=== PATIENT | female | born 1970 | race Caucasian/White ===

== ENCOUNTER 2020-09-02 13:28 | Emergency (ER) | payer OTHER, SELFPAY ==
[2020-09-02 13:30] VITALS: BP 161/88; PULSE 121; RESP 17; TEMP 37.1; O2SAT 95; BMI 60.4
--- NOTE | 2020-09-02 14:04 | RAD_ITS ---
STUDY: X-RAY CHEST REASON FOR EXAM: Female, 50 years old. Worsening shortness of breath TECHNIQUE: Single AP portable view of the chest. COMPARISON: None. FINDINGS: Lungs are expanded with chronic interstitial changes in both lung correa, no demonstrated effusion or infiltrate findings suggest CHF or bronchitis. There is no demonstrated pleural abnormality. There is cardiomegaly. Normal mediastinum and buddy. Normal visualized pulmonary arteries. Normal visualized aortic arch and descending thoracic aorta. There are diffuse degenerative changes of the visualized thoracic spine. Normal visualized ribs, clavicles, and shoulders. There is no demonstrated abnormality of the visualized soft tissue structures of the upper abdomen. RAD/Chest 1 View (Portable) IMPRESSION: Diffuse interstitial edema without pleural effusions No organized infiltrate Cardiomegaly Electronically Signed: Harrison Hernandez MD at 14:55 EDT , Service support ,
--- NOTE | 2020-09-02 14:04 | EKG12_ITS ---
Test Reason : INFECTION Blood Pressure : / mmHG Vent. Rate : 114 BPM Atrial Rate : 114 BPM P-R Int : 168 ms QRS Dur : 072 ms QT Int : 326 ms P-R-T Axes : 051 121 021 degrees QTc Int : 449 ms Sinus tachycardia Right axis deviation Low voltage QRS Cannot rule out Anterior infarct , age undetermined Abnormal ECG Confirmed by SAMANTHA LYLE, DAWNA ([id number]), subeditor SAUL PORTILLO ([id number]) on 09/05/2020 2:56:18 PM Referred By: LUIS ALBERTO Confirmed By:JERE SINGH MD
--- NOTE | 2020-09-02 14:15 | ED.VIS.GEN ---
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 She was concerned that she was developing an infection in the left leg as it started to drain yesterday. She denies any significant color change. No tenderness with palpation. No pain in the legs. Her legs have been swollen for the past 6 months. Her PCP has evaluated her and placed her on Lasix. She does not feel like this is helping very much. She denies any significant chest pain, shortness of breath. She does get intermittent palpitations. She had a bad episode last night but currently denies experiencing this now. She had a mild cough last week but denies any infectious symptoms now. No fevers or chills. No abdominal pain or nausea/vomiting. No change in bowel movements. Denies having any fevers or chills. Past Medical History - Allergies and Home Meds Allergies/Adverse Reactions: Allergies Penicillins [PCN] Allergy (Verified 09/02/20 13:30) Other Sulfa (Sulfonamide Antibiotics) Allergy (Verified 09/02/20 13:30) Itching Primary Care Physician: [facility],Out of [NON-STAFF] - 1 Day Prior records reviewed: Yes Surgical History: noncontributory Smoking Status: Current every day smoker Review of Systems All systems negative except as indicated General: Denies: Chills, Fever, Sweats Eyes: Denies: Visual changes - bilaterally, Diplopia ENT: Denies: Rhinorrhea, Sore throat Cardiovascular: Reports: Palpitations. Denies: Chest pain Respiratory: Denies: Dyspnea, Cough, Dyspnea on exertion Gastrointestinal: Denies: Abdominal pain, Nausea, Vomiting, Diarrhea Genitourinary: Denies: Dysuria, Hematuria, Frequency Musculoskeletal: Reports: Swelling. Denies: Back pain, Extremity Pain Skin: Denies: Rash, Wounds Neurological: Denies: Headache, Weakness, Numbness Physical Exam Vital Signs/Narrative: Vital Signs Temp Pulse Resp BP Pulse Ox 09/02/20 13:30 98.7 F 121 H 17 161/88 H 95 Inital Vital Signs reviewed: Yes General: Obese, No Acute Distress Head: Normocephalic, Atraumatic Eyes: Perrl, EOMI ENT: Moist mucous membranes, No rhinorrhea Neck: Supple, Nontender Cardiovascular: Regular rhythm, No murmurs, Tachycardia Respiratory: No distress, CTA bilaterally, Chest nontender Abdomen: Soft, Nontender, Nondistended Back: Nontender, Normal Inspection Extremities: Nontender, - - Lymphedema of bilateral lower extremities. There is scaliness circumferential from mid tibia down to the foot. There is a open spot where the tissue appears more pink. No discharge. No tenderness. No warmth. Skin: Normal color Neurological: Alert, Oriented x3, Cranial nerves II-XII grossly intact, Normal Strength, Normal Sensation Psychological: Normal affect, Normal Mood Diagnostic/Tx/Re-eval Chest X-Ray - ED: 1 View - Single view portable x-ray interpreted by myself. Clear lung correa without any evidence of acute consolidation. Normal cardiac silhouette. Normal mediastinum. No large effusions present. Agree with radiologist. - EKG Initial EKG Interpretation: - - Rate of 114 bpm in sinus tachycardia. Normal intervals. Normal axis. No significant ST elevations or depressions. No T wave abnormalities. - Medical Decision Making Patient presents to the ED for swelling in her legs. She is concerned about an infection in the left caballero region. On exam this does appear pink but not erythematous, cellulitic. No significant tenderness. No warmth with palpation. On arrival her heart rate is in the 120s. She has been having some intermittent palpitations. Will check basic lab work given the significant swelling of her lower extremities, intermittent palpitations. This time I do not feel she needs any treatment for cellulitis. Patient's lab work showed a elevated white blood cell count and hemoglobin which she states is chronic for her. No evidence of infection. Her BMP and troponin are within normal limits. At this time I recommend she follow-up with her PCP. She can continue on the Lasix. I do recommend elevating her legs above the level of her heart is much as possible throughout the day and to continue to wear compression stockings. At this time she is stable for discharge. I did discuss with her about restarting anticoagulation with the history of the factor V which she needs to discuss with her PCP. This time I do not feel she has any evidence of DVT/PE. Her leg swelling is bilateral without any pain. She does not complain of any chest pain or shortness of breath. She was mildly tachycardic on arrival but upon discharge after she is resting laying her heart rate returned to the 90s. At this time she is discharged home in stable condition. Return precautions are reviewed with her including any evidence of cellulitis including erythema, warmth, significant tenderness to the area. She understands and is agreeable with plan. All questions answered. ED Disposition - Plan for ED Patient: Disposition: Home or Assisted Living Diagnosis: Peripheral edema Instructions: ED Lymphedema Referrals: [facility],Out of [NON-STAFF] - 1 Day
[2020-09-02 14:46] LABS: Absolute Lymphocyte Count 2.03 X10^3/uL (0.83-4.51); Absolute Neutrophil Count 10.5 X10^3/uL (2.0-7.7); Basophil# 0.05 X10^3/uL; Basophil% 0.4 % (0-1); Eosinophil# 0.13 X10^3/uL; Eosinophils% 0.9 % (0-5); Hematocrit 51.1 % (37-47); Hemoglobin 15.9 g/dL (12.0-15.0); Lymphocyte # 2.03 X10^3/ul (4.0); Lymphocyte % 14.4 % (19-41); Mean Corp Hgb Conc 31.1 g/dL (32-36); Mean Corpuscular Hgb 29.4 pg (27.0-32.0); Mean Corpuscular Volume 94.5 fL (81-99); Mean Platelet Vol. 11.8 fl (6.2-12.0); Monocyte# 1.33 X10^3/uL; Monocyte% 9.4 % (0-10); NRBC Flagged by Analyzer 0 % (0-5); Neutrophil # 10.48 X10^3/uL (2.7-7.7); Neutrophil % 74.5 % (47-70); Platelet Count 230 K/mm3 (150-450); RBC Distribution Width CV 16.2 % (11.6-14.6); RBC Distribution Width SD 56.1 fl (35.1-43.9); Red Blood Count 5.41 M/mm3 (4.2-5.4); White Blood Count 14.1 K/mm3 (4.4-11.0)
[2020-09-02 15:04] LABS: Anion Gap 2 (5-15); BUN 10 mg/dL (7-18); BUN/Creat Ratio 10.9 RATIO (10-20); Calcium,Total 9.3 mg/dL (8.5-10.1); Chloride 102 mmol/L (98-107); Creatinine, Serum 0.92 mg/dL (0.55-1.02); EST Glomerular Filtration Rate 69 mL/min (>60); Est Glom Filt Rate - Afr Amer 84 mL/min (>60); Estimated Creatinine Clearance 71.93 ml/min; Glucose 122 mg/dL (74-106); Potassium 4.1 mmol/L (3.5-5.1); Sodium Level 138 mmol/L (136-145)
[2020-09-02 15:05] LABS: BNP,B-Type NATRIURETIC PEPTIDE 35.1 pg/mL (0-100)
[2020-09-02 16:22] VITALS: BP 126/85; PULSE 98; RESP 15; O2SAT 93
== END 2020-09-02 16:31 | disposition home or self-care (01) ==
PROVIDERS: Emergency Provider Emergency Medicine; PCP Family Medicine
DX: R60.0 Localized edema (principal); E11.9 Type 2 diabetes mellitus without complications; I10 Essential (primary) hypertension; D68.51 Activated protein C resistance; F17.200 Nicotine dependence, unspecified, uncomplicated; Z86.718 Personal history of other venous thrombosis and embolism; Z79.899 Other long term (current) drug therapy
CPT/HCPCS: 71045; 80048; 83735; 83880; 84484; 85025; 93005; 99284; A4216